=== PATIENT | male | born 1985 | race Caucasian/White ===

== ENCOUNTER 2018-11-19 16:54 | Emergency (ER) | payer MEDICAID ==
[2018-11-19] MEDS ORDERED: Diphtheria,Pertussis(Acell),Tetanus Vaccine 0.5 ML Syringe IM ONE (17:27)
--- NOTE | 2018-11-19 17:36 | EDM.PDOC ---
ED HPI GENERAL MEDICAL PROBLEM - General Chief Complaint: General Stated Complaint: FINGER INJURY Time Seen by Provider: 11/19/18 17:25 Source of Information: Reports: Patient - History of Present Illness INITIAL COMMENTS - FREE TEXT/NARRATIVE: Patient reports he was outside of [place] and punched a box on the sidewalk. Patient reports pain to the right 2nd digit. Patient denies other injuries or pain. Onset: Today Onset Date: 11/19/18 Location: Reports: Upper Extremity, Right Severity: Mild Improves with: Reports: Immobilization Worsens with: Reports: Movement Associated Symptoms: Reports: No Other Symptoms. Denies: Confusion, Chest Pain , Cough, cough w sputum, Diaphoresis, Fever/Chills, Headaches, Loss of Appetite , Malaise, Nausea/Vomiting, Rash, Seizure, Shortness of Breath, Syncope, Weakness Right Finger-Index Pain Score (Numeric/FACES): 7 - Related Data Allergies Allergy/AdvReac Type Severity Reaction Status Date / Time No Known Allergies Allergy Verified 11/19/18 17:05 Home Meds: Home Meds . [No Known Home Meds] 11/19/18 [History] Past Medical History - Past Health History Medical/Surgical History: Denies Medical/Surgical History Social & Family History - Family History Family Medical History: Noncontributory - Tobacco Use Years of Tobacco use: 20 Packs/Tins Daily: 1 - Caffeine Use Caffeine Use: Reports: Coffee, Soda - Recreational Drug Use Recreational Drug Use: No ED ROS GENERAL - Review of Systems Review Of Systems: See Below Constitutional: Reports: No Symptoms HEENT: Reports: No Symptoms Respiratory: Reports: No Symptoms Cardiovascular: Reports: No Symptoms Endocrine: Reports: No Symptoms GI/Abdominal: Reports: No Symptoms : Reports: No Symptoms Musculoskeletal: Reports: Hand Pain (right 2nd digit pain) Skin: Reports: Wound (right second digit) Neurological: Reports: No Symptoms Psychiatric: Reports: No Symptoms Hematologic/Lymphatic: Reports: No Symptoms ED EXAM, GENERAL - Physical Exam Exam: See Below Exam Limited By: No Limitations General Appearance: Alert, WD/WN, No Apparent Distress Respiratory/Chest: No Respiratory Distress, Lungs Clear, Normal Breath Sounds, No Accessory Muscle Use Cardiovascular: Normal Peripheral Pulses, Regular Rate, Rhythm, No Edema, No Gallop, No JVD, No Murmur, No Rub Course - Vital Signs Last Recorded V/S: Last Vital Signs Temp 97.2 F 11/19/18 17:14 Pulse 114 H 11/19/18 17:14 Resp 18 11/19/18 17:14 BP 136/85 11/19/18 17:14 Pulse Ox 98 11/19/18 17:14 - Orders/Labs/Meds Orders: Active Orders 24 hr Category Date Time Status Vaccines to be Administered [RC] PER UNIT ROUTINE Care 11/19/18 17:27 Active Fingers Second Digit Rt F6 [CR] Stat Exams 11/19/18 17:19 Taken Hand w Cont Rt [CT] Stat Exams 11/19/18 17:27 Ordered Meds: Medications Discontinued Medications Generic Name Dose Route Start Last Admin Trade Name Freq PRN Reason Stop Dose Admin Diphtheria/Tetanus/Acell Pertussis 0.5 ml 11/19/18 17:27 Adacel IM 11/19/18 17:28 .ONCE ONE - Radiology Interpretation Free Text/Narrative:: Right 2nd digit finger: No dislocation. No fracture. No swelling. Departure - Departure Time of Disposition: 17:41 Disposition: Home, Self-Care 01 Condition: Good Clinical Impression: Finger strain - Discharge Information *PRESCRIPTION DRUG MONITORING PROGRAM REVIEWED*: Not Applicable *COPY OF PRESCRIPTION DRUG MONITORING REPORT IN PATIENT PRAKASH: Not Applicable Instructions: Finger Sprain, Adult, [id number] Forms: ED Department Discharge Additional Instructions: Followup with your primary care provider as needed Return as needed Rest Ice Elevate Splint as needed Tylenol or Motrin for pain as needed Keep wound clean and dry No work today - My Orders Last 24 Hours: My Active Orders 11/19/18 17:19 Fingers Second Digit Rt F6 [CR] Stat 11/19/18 17:27 Vaccines to be Administered [RC] PER UNIT ROUTINE Hand w Cont Rt [CT] Stat - Assessment/Plan Last 24 Hours: My Active Orders 11/19/18 17:19 Fingers Second Digit Rt F6 [CR] Stat 11/19/18 17:27 Vaccines to be Administered [RC] PER UNIT ROUTINE Hand w Cont Rt [CT] Stat Plan: PLEASE SEE RN NOTE FOR PFSH.
== END 2018-11-19 17:50 | disposition home or self-care (01) ==
LOC: CC.ED 16:54
DX: S56.111A Strain of flexor muscle, fascia and tendon of right index finger at forearm level, initial encounter (principal); Z23 Encounter for immunization; W26.9XXA Contact with unspecified sharp object(s), initial encounter
CPT/HCPCS: 73140-F6; 90471; 90715; 99283-25